=== PATIENT | male | born 1950 | race Caucasian/White ===

== ENCOUNTER 2019-12-02 13:12 | Inpatient (IN) ==
[~2019-12-02 13:12] MED LIST: DEXTROSE 50% 25 GM/50 ML VIAL IV PRN; GLUCAGON 1 MG VIAL IM PRN; SODIUM CHLORIDE 0.9% 1,000 ML IV SCH
[2019-12-02] MEDS ORDERED: ZALEPLON 5 MG CAPSULE PO PRN (13:36)
[2019-12-02] MEDS ORDERED: CLORAZEPATE 3.75 MG TABLET PO PRN (13:36)
[2019-12-02 15:29] LABS: Basophils % 0.3 % (0.0-0.8); Eosinophils # 0.2 10*3/uL (0.0-0.87); Hematocrit 46.5 VOL% (42.0-52.0); Hemoglobin 15.1 GM/DL (14.0-18.0); Immature Granulocytes % 0.4 %; Immature Granulocytes Absolute 0.03 #; Lymphocytes # 1.7 10*3/uL (1.4-4.0); Lymphocytes % 22.6 % (21.2-54.2); Mean Corpuscular HGB Conc 32.5 GM/DL (32-36); Mean Corpuscular Volume 89.6 FL (87-102); Mean Platelet Volume 10.5 FL (9.6-12.0); Monocytes % 7.2 % (1.7-12.7); Neutrophils % 66.5 % (38.7-73.9); Platelet Count 183 T/CUMM (130-400); Red Blood Count 5.19 MC/CUMM (3.8-5.5); Red Cell Distribution Width 13.7 % (9.3-17.3); White Blood Count 7.6 T/CUMM (4-12)
[2019-12-02 15:48] LABS: Albumin 3.6 G/DL (3.4-5.0); Bilirubin,Total 0.8 MG/DL (0.2-1.0); Calcium 9.5 MG/DL (8.5-10.1); Osmolality,Calculated 279.5 MOS/KG (273-304); Total Protein 8.1 G/DL (6.4-8.3)
[2019-12-02 16:49] LABS: Pt O2 Delivery Device Room Air
[2019-12-02 16:50] LABS: ABG Base Excess 3.1 MMOL/L (-2.5-2.5); ABG HCO3 27.1 MMOL/L (20-26); ABG Oxygen Saturation 96.8 % (95-100); ABG PCO2 36.7 MM HG (35-48); ABG PH 7.468 (7.35-7.45); ABG PO2 83.2 MM HG (80-95); ABG TCO2 22.4 MMOL/L (23-27)
[2019-12-02] MEDS: CHLORHEXIDINE 4% SOLN 118 ML BOTTLE TOP SCH ×2 (17:07→20:17)
[2019-12-02] MEDS: carvediloL 25 MG TABLET PO SCH (20:16)
[2019-12-02] MEDS: LOSARTAN 50 MG TABLET PO SCH (20:17)
[2019-12-02] MEDS: FUROSEMIDE 40 MG TABLET PO SCH (20:17)
[2019-12-02] MEDS: CHLORHEXIDINE 0.12% ORAL RINSE 60 ML BOTTLE SWISH/SPIT SCH (21:37)
[2019-12-03] MEDS ORDERED: PAPAVERINE 60 MG/2 ML VIAL ONE (04:24)
[2019-12-03] MEDS ORDERED: VANCOMYCIN 500 MG VIAL ONE (04:24)
[2019-12-03] MEDS ORDERED: VANCOMYCIN 1,000 MG VIAL ONE (04:24)
[2019-12-03] MEDS: CHLORHEXIDINE 4% SOLN 118 ML BOTTLE TOP SCH ×2 (04:30→09:26)
[2019-12-03] MEDS ORDERED: DIAZEPAM 5 MG TABLET PO ONE (05:07)
[2019-12-03] MEDS ORDERED: FAMOTIDINE 20 MG TABLET PO ONE (05:08)
[2019-12-03] MEDS ORDERED: CEFUROXIME INJ 1,500 MG in SODIUM CHLORIDE 0.9% 100 ML IV ONE (06:00)
[2019-12-03] MEDS ORDERED: MIDAZOLAM 10 MG/2 ML VIAL ONE (06:04)
[2019-12-03] MEDS ORDERED: SUFentanil 250 MCG/5 ML AMP ONE (06:05)
[2019-12-03] MEDS ORDERED: ePHEDrine 50 MG/ML VIAL ONE (06:05)
[2019-12-03] MEDS: carvediloL 25 MG TABLET PO SCH ×2 (06:07→09:26)
[2019-12-03 07:35] LABS: ABG Base Excess 1.6 MMOL/L (-2.5-2.5); ABG HCO3 25.9 MMOL/L (20-26); ABG PCO2 35.9 MM HG (35-48); ABG PH 7.454 (7.35-7.45); ABG TCO2 21.7 MMOL/L (23-27); Glucose Heart Surgery 128 MG/DL (74-106); Hematocrit Heart Surgery 41.2 PERCENT (42-52); Hemoglobin Heart Surgery 13.4 G/DL (14.0-18.0); Ionized Calcium Arterial 1.16 MMOL/L (1.21-1.46); PCO2 Patient Temp Arterial 35.9 MMHG; PH Patient Temp Arterial 7.454; Patient Temperature 37 CELCIUS; Potassium Heart/CVR 3.2 MMOL/L (3.5-5.1); Sodium Heart/CVR 144 MMOL/L (135-145)
[2019-12-03 08:17] LABS: Amorphous Crystals,Urine Occasional /HPF (Few); Apearance,Urine CLEAR (Clear); Bilirubin,Urine Negative (Negative); Blood, Urine Negative (Negative); Glucose,Urine (UA) Negative (Negative); Hyaline Casts,Urine 3 /LPF (0-3); Ketones,Urine Negative (Negative); Mucus,Urine Occasional /LPF (Occasional); Nitrite,Urine Negative (Negative); Protein,Urine Negative; RBC,Urine 4 /HPF (0-4); Squamous Epithelial Cell,Urine Occasional /HPF (0-10); Urine Color Yellow (Yellow); Urine Specific Gravity 1.016 (1.001-1.035); Urine Urobilinogen < 2.0 EU/DL (0.2-1.0); WBC,Urine <1 /HPF (0-6)
[2019-12-03 08:59] LABS: Hematocrit Heart Surgery 29.3 PERCENT (42-52); Hemoglobin Heart Surgery 9.4 G/DL (14.0-18.0); PCO2 Patient Temp Venous 33.8 MM HG; PH Patient Temp Venous 7.485; PO2 Patient Temp Venous 36.2 MM HG; Potassium Heart/CVR 3.6 MMOL/L (3.5-5.1); VBG Base Excess 2.3 MEQ/L (0-4); VBG HCO3 26.1 MEQ/L (24-28); VBG Oxygen Saturation 75.7 %; VBG PCO2 37.3 MMHG (41-51); VBG PH 7.455; VBG PO2 41.7 MMHG (17-40)
[2019-12-03] MEDS ORDERED: POTASSIUM CHLORIDE 8 MEQ CAPSULE PO SCH (09:00)
[2019-12-03] MEDS: LOSARTAN 50 MG TABLET PO SCH (09:26)
[2019-12-03] MEDS: FUROSEMIDE 40 MG TABLET PO SCH (09:26)
[2019-12-03] MEDS: CHLORHEXIDINE 0.12% ORAL RINSE 60 ML BOTTLE SWISH/SPIT SCH ×2 (09:26→21:49)
[2019-12-03 09:32] LABS: Hematocrit Heart Surgery 31.1 PERCENT (42-52); Hemoglobin Heart Surgery 10.1 G/DL (14.0-18.0); PH Patient Temp Venous 7.521; PO2 Patient Temp Venous 37.8 MM HG; Potassium Heart/CVR 3.7 MMOL/L (3.5-5.1); VBG Base Excess 2.3 MEQ/L (0-4); VBG HCO3 26.2 MEQ/L (24-28); VBG Oxygen Saturation 82.7 %; VBG PCO2 34.7 MMHG (41-51); VBG PH 7.476; VBG PO2 46.5 MMHG (17-40)
[2019-12-03 09:58] LABS: Hematocrit Heart Surgery 32.9 PERCENT (42-52); Hemoglobin Heart Surgery 10.7 G/DL (14.0-18.0); PCO2 Patient Temp Venous 30.7 MM HG; PH Patient Temp Venous 7.51; PO2 Patient Temp Venous 35.6 MM HG; VBG HCO3 25.8 MEQ/L (24-28); VBG Oxygen Saturation 76.2 %; VBG PCO2 33.8 MMHG (41-51); VBG PH 7.48; VBG PO2 40.9 MMHG (17-40)
[2019-12-03] MEDS ORDERED: THROMBIN TOPICAL (RECOMBINANT) 5,000 UNIT VIAL TOP ONE (10:12)
[2019-12-03] MEDS ORDERED: POTASSIUM CHLORIDE RIDER 100 ML IV ONE ×2 (10:17→11:38)
[2019-12-03] MEDS ORDERED: ALBUMIN 5% 12.5 GM/250 ML VIAL IV ONE ×3 (10:17→11:39)
[2019-12-03] MEDS ORDERED: PHENYLEPHRINE DRIP 40 MG/250 ML PREMIX IV ONE (10:17)
[2019-12-03] MEDS ORDERED: CALCIUM CHLORIDE 1,000 MG/10 ML SYRINGE IV ONE (10:18)
[2019-12-03] MEDS ORDERED: LIDOCAINE 2% 5 ML VIAL ONE (10:41)
[2019-12-03] MEDS ORDERED: DEXTROSE 5% KCL 20 MEQ 20 MEQ/1,000 ML BAG IV ONE (10:41)
[2019-12-03] MEDS ORDERED: MANNITOL 100 GM/500 ML BAG IV ONE (10:41)
[2019-12-03] MEDS ORDERED: HEPARIN 10,000 UNIT/10 ML VIAL ONE (10:42)
[2019-12-03] MEDS ORDERED: POTASSIUM CHLORIDE 20 MEQ/10 ML VIAL ONE (10:42)
[2019-12-03] MEDS ORDERED: methylPREDNISolone SOD SUC 1,000 MG/8 ML VIAL ONE (10:42)
[2019-12-03] MEDS ORDERED: PROTAMINE SULFATE 250 MG/25 ML VIAL IV ONE (10:42)
[2019-12-03] MEDS ORDERED: SODIUM BICARBONATE 50 MEQ/50 ML VIAL IV ONE (10:42)
[2019-12-03] MEDS ORDERED: PROTAMINE SULFATE 50 MG/5 ML VIAL IV ONE ×3 (10:42→12:08)
[2019-12-03] MEDS ORDERED: ALBUMIN 25% 25 GM/100 ML VIAL IV ONE (10:42)
[2019-12-03] MEDS ORDERED: FUROSEMIDE 20 MG/2 ML VIAL ONE (10:42)
[2019-12-03] MEDS ORDERED: MAGNESIUM SULFATE 5 GM/10 ML VIAL IV ONE (10:42)
[2019-12-03 10:48] LABS: ABG Base Excess -0.9 MMOL/L (-2.5-2.5); ABG HCO3 23.7 MMOL/L (20-26); ABG Oxygen Saturation 99.5 % (95-100); ABG PCO2 43.4 MM HG (35-48); ABG PH 7.361 (7.35-7.45); ABG TCO2 22.2 MMOL/L (23-27); Glucose Heart Surgery 204 MG/DL (74-106); Hematocrit Heart Surgery 33.1 PERCENT (42-52); Hemoglobin Heart Surgery 10.7 G/DL (14.0-18.0); Ionized Calcium Arterial 1.41 MMOL/L (1.21-1.46); PCO2 Patient Temp Arterial 43.4 MMHG; PH Patient Temp Arterial 7.361; Patient Temperature 37 CELCIUS; Sodium Heart/CVR 139 MMOL/L (135-145)
[2019-12-03] MEDS ORDERED: INSULIN REGULAR 100 UNIT/ML IV ONE (11:14)
[2019-12-03] MEDS ORDERED: PHENYLEPHRINE DRIP 40 MG/250 ML PREMIX IV PRN (11:14)
[2019-12-03] MEDS ORDERED: MORPHINE 10 MG/1 ML VIAL IV PRN (11:14)
[2019-12-03] MEDS ORDERED: INSULIN REGULAR 100 UNIT/ML IV PRN (11:14)
[2019-12-03] MEDS ORDERED: MIDAZOLAM 10 MG/2 ML VIAL IV PRN (11:14)
[2019-12-03] MEDS ORDERED: LACTATED RINGERS 250 ML IV PRN (11:14)
[2019-12-03] MEDS ORDERED: ONDANSETRON 4 MG/2 ML VIAL IV PRN (11:14)
[2019-12-03] MEDS ORDERED: MAGNESIUM SULF RIDER 4 GM in PREMIX 1 EACH IV PRN (11:14)
[2019-12-03] MEDS ORDERED: VECURONIUM 10 MG VIAL IV PRN ×2 (11:14)
[2019-12-03] MEDS ORDERED: ACETAMINOPHEN 650 MG SUPP RECTAL PRN (11:14)
[2019-12-03] MEDS ORDERED: DEXTROSE 50% 25 GM/50 ML VIAL IV PRN ×2 (11:14)
[2019-12-03] MEDS ORDERED: MIDAZOLAM 2 MG/2 ML VIAL IV PRN (11:14)
[2019-12-03] MEDS ORDERED: MAGNESIUM SULF RIDER 2 GM in PREMIX 1 EACH IV PRN (11:14)
[2019-12-03] MEDS ORDERED: POTASSIUM CHLORIDE RIDER 10 MEQ in PREMIX 1 EACH IV PRN (11:14)
[2019-12-03] MEDS ORDERED: CALCIUM CHLORIDE 1,000 MG/10 ML SYRINGE IV PRN (11:14)
[2019-12-03] MEDS ORDERED: MORPHINE 4 MG/1 ML VIAL IV PRN (11:14)
[2019-12-03] MEDS ORDERED: CHLORHEXIDINE 4% SOLN 118 ML BOTTLE TOP PRN (11:14)
[2019-12-03] MEDS ORDERED: NITROPRUSSIDE 100 MG in DEXTROSE 5% 250 ML IV PRN (11:14)
[2019-12-03] MEDS: LACTATED RINGERS 1,000 ML IV PRN ×3 (11:22→15:35)
[2019-12-03] MEDS ORDERED: SODIUM CHLORIDE 0.45% 1,000 ML IV SCH ×2 (11:30)
[2019-12-03] MEDS ORDERED: INSULIN REGULAR DRIP 100 ML IV SCH (11:30)
[2019-12-03] MEDS ORDERED: NITROGLYCERIN DRIP 50 MG/250 ML BOTTLE IV ONE (11:38)
[2019-12-03] MEDS ORDERED: CALCIUM CHLORIDE 1,000 MG/10 ML VIAL IV ONE (11:38)
[2019-12-03] MEDS ORDERED: HEPARIN/NACL 0.9% 2 UNITS/ML 500 ML IV ONE (11:38)
[2019-12-03] MEDS ORDERED: PHENYLEPHRINE DRIP 20 MG/250 ML PREMIX IV ONE (11:38)
[2019-12-03] MEDS ORDERED: SEVOFLURANE 1 UNIT/15 MINUTE INH ONE (11:38)
[2019-12-03] MEDS ORDERED: VECURONIUM 10 MG VIAL IV ONE (11:38)
[2019-12-03] MEDS ORDERED: SODIUM CHLORIDE 0.9% 1,000 ML IV ONE (11:39)
[2019-12-03] MEDS ORDERED: LACTATED RINGERS 1,000 ML IV ONE ×2 (11:39→12:00)
[2019-12-03] MEDS ORDERED: AMINOCAPROIC ACID 5,000 MG/20 ML VIAL ONE (11:39)
[2019-12-03] MEDS ORDERED: SODIUM CHLORIDE 0.9% 250 ML IV ONE (11:39)
[2019-12-03] MEDS ORDERED: SODIUM CHLORIDE 0.9% 100 ML IV ONE (11:39)
[2019-12-03] MEDS ORDERED: NITROPRUSSIDE 50 MG/2 ML VIAL ONE ×2 (11:47→11:48)
[2019-12-03 11:59] LABS: ABG HCO3 24.4 MMOL/L (20-26); ABG Oxygen Saturation 98.9 % (95-100); ABG PCO2 45.2 MM HG (35-48); ABG PH 7.363 (7.35-7.45); ABG TCO2 22.9 MMOL/L (23-27); Glucose Heart Surgery 181 MG/DL (74-106); Hematocrit Heart Surgery 36.9 PERCENT (42-52); Potassium Heart/CVR 3.2 MMOL/L (3.5-5.1)
[2019-12-03] MEDS: POTASSIUM CHLORIDE RIDER 20 MEQ in PREMIX 1 EACH IV PRN ×5 (12:00→22:33)
[2019-12-03 12:02] LABS: Basophils % 0.1 % (0.0-0.8); Eosinophils # 0.1 10*3/uL (0.0-0.87); Hematocrit 36.1 VOL% (42.0-52.0); Hemoglobin 11.8 GM/DL (14.0-18.0); Immature Granulocytes % 0.6 %; Immature Granulocytes Absolute 0.05 #; Lymphocytes # 0.7 10*3/uL (1.4-4.0); Lymphocytes % 8.4 % (21.2-54.2); Mean Corpuscular HGB Conc 32.7 GM/DL (32-36); Mean Corpuscular Volume 89.6 FL (87-102); Mean Platelet Volume 10.7 FL (9.6-12.0); Monocytes % 4.5 % (1.7-12.7); Neutrophils % 85.4 % (38.7-73.9); Platelet Count 124 T/CUMM (130-400); Red Blood Count 4.03 MC/CUMM (3.8-5.5); Red Cell Distribution Width 13.8 % (9.3-17.3); White Blood Count 8.7 T/CUMM (4-12)
[2019-12-03 12:13] LABS: INR 1.1; PT Patient Result 12.1 SECS (9.8-11.9); Partial Thromboplastin Time 28.2 SECS (23.9-33.8)
[2019-12-03 12:31] LABS: CKMB % 5.4 %
[2019-12-03 12:34] LABS: Albumin 3.3 G/DL (3.4-5.0); Bilirubin,Total 1.5 MG/DL (0.2-1.0); Calcium 9.1 MG/DL (8.5-10.1); Osmolality,Calculated 289.3 MOS/KG (273-304); Total Protein 6.5 G/DL (6.4-8.3)
[2019-12-03 12:36] LABS: Troponin I 2.38 NG/ML (0.00-0.045)
[2019-12-03 12:47] LABS: Hematocrit Heart Surgery 33.2 PERCENT (42-52); Hemoglobin Heart Surgery 10.7 G/DL (14.0-18.0); PCO2 Patient Temp Venous 47.8 MM HG; PH Patient Temp Venous 7.344; PO2 Patient Temp Venous 41.6 MM HG; Potassium Heart/CVR 3.2 MMOL/L (3.5-5.1); VBG Base Excess -0.1 MEQ/L (0-4); VBG HCO3 23.8 MEQ/L (24-28); VBG Oxygen Saturation 67.6 %; VBG PCO2 47.8 MMHG (41-51); VBG PH 7.344; VBG PO2 41.6 MMHG (17-40)
[2019-12-03] MEDS: ALBUMIN 5% 12.5 GM in PREMIX 1 EACH IV PRN ×2 (13:00→15:45)
[2019-12-03 13:20] LABS: ABG HCO3 24.4 MMOL/L (20-26); ABG Oxygen Saturation 98.7 % (95-100); ABG PCO2 39.2 MM HG (35-48); ABG PH 7.405 (7.35-7.45); Glucose Heart Surgery 179 MG/DL (74-106); Hematocrit Heart Surgery 34.3 PERCENT (42-52); Hemoglobin Heart Surgery 11.1 G/DL (14.0-18.0); Potassium Heart/CVR 3.5 MMOL/L (3.5-5.1)
[2019-12-03 15:28] LABS: ABG Base Excess -0.8 MMOL/L (-2.5-2.5); ABG HCO3 23.7 MMOL/L (20-26); ABG Oxygen Saturation 98.4 % (95-100); ABG PCO2 40.1 MM HG (35-48); ABG PH 7.386 (7.35-7.45); ABG TCO2 21.7 MMOL/L (23-27); Glucose Heart Surgery 193 MG/DL (74-106); Hematocrit Heart Surgery 33.4 PERCENT (42-52); Hemoglobin Heart Surgery 10.8 G/DL (14.0-18.0); Potassium Heart/CVR 3.9 MMOL/L (3.5-5.1)
[2019-12-03] MEDS ORDERED: SODIUM CHLORIDE 0.9% 1,000 ML IV PRN (16:23)
[2019-12-03] MEDS: CEFUROXIME INJ 1,500 MG in SYRINGE 1 EACH IV SCH (18:23)
[2019-12-03 18:29] LABS: ABG Base Excess -0.6 MMOL/L (-2.5-2.5); ABG HCO3 23.9 MMOL/L (20-26); ABG Oxygen Saturation 98.7 % (95-100); ABG PCO2 39.2 MM HG (35-48); ABG PH 7.396 (7.35-7.45); ABG TCO2 22.2 MMOL/L (23-27); Glucose Heart Surgery 230 MG/DL (74-106); Hematocrit Heart Surgery 27.6 PERCENT (42-52); Hemoglobin Heart Surgery 8.9 G/DL (14.0-18.0); Potassium Heart/CVR 3.7 MMOL/L (3.5-5.1)
[2019-12-03] MEDS ORDERED: NITROGLYCERIN DRIP 50 MG/250 ML BOTTLE IV PRN (20:00)
[2019-12-03 20:27] LABS: ABG Base Excess -1.1 MMOL/L (-2.5-2.5); ABG HCO3 23.5 MMOL/L (20-26); ABG Oxygen Saturation 97.9 % (95-100); ABG PH 7.354 (7.35-7.45); ABG TCO2 22.6 MMOL/L (23-27); Glucose Heart Surgery 279 MG/DL (74-106); Hematocrit Heart Surgery 28.7 PERCENT (42-52); Hemoglobin Heart Surgery 9.3 G/DL (14.0-18.0); Potassium Heart/CVR 3.9 MMOL/L (3.5-5.1)
[2019-12-03 21:12] LABS: CKMB % 5.6 %
[2019-12-03 21:35] LABS: Troponin I 5.74 NG/ML (0.00-0.045)
[2019-12-03 22:16] LABS: ABG Base Excess -1.3 MMOL/L (-2.5-2.5); ABG HCO3 23.3 MMOL/L (20-26); ABG Oxygen Saturation 96.9 % (95-100); ABG PCO2 42.6 MM HG (35-48); ABG PH 7.361 (7.35-7.45); ABG PO2 96.9 MM HG (80-95); ABG TCO2 22.2 MMOL/L (23-27); Glucose Heart Surgery 279 MG/DL (74-106); Hematocrit Heart Surgery 28.7 PERCENT (42-52); Hemoglobin Heart Surgery 9.2 G/DL (14.0-18.0); Potassium Heart/CVR 3.9 MMOL/L (3.5-5.1)
[2019-12-03 23:56] LABS: ABG Base Excess -2.5 MMOL/L (-2.5-2.5); ABG HCO3 22.3 MMOL/L (20-26); ABG Oxygen Saturation 97.2 % (95-100); ABG PCO2 41.2 MM HG (35-48); ABG PH 7.353 (7.35-7.45); ABG PO2 96.9 MM HG (80-95); ABG TCO2 21.1 MMOL/L (23-27); Glucose Heart Surgery 215 MG/DL (74-106); Hematocrit Heart Surgery 28.9 PERCENT (42-52); Hemoglobin Heart Surgery 9.3 G/DL (14.0-18.0)
[2019-12-04] MEDS: POTASSIUM CHLORIDE RIDER 20 MEQ in PREMIX 1 EACH IV PRN ×2 (00:05→05:53)
[2019-12-04 00:34] LABS: ABG Base Excess -2.2 MMOL/L (-2.5-2.5); ABG HCO3 22.6 MMOL/L (20-26); ABG Oxygen Saturation 96.6 % (95-100); ABG PCO2 42.2 MM HG (35-48); ABG PO2 89.4 MM HG (80-95); ABG TCO2 21.5 MMOL/L (23-27); Glucose Heart Surgery 202 MG/DL (74-106); Hematocrit Heart Surgery 28.7 PERCENT (42-52); Hemoglobin Heart Surgery 9.3 G/DL (14.0-18.0); Potassium Heart/CVR 4.5 MMOL/L (3.5-5.1)
[2019-12-04 04:14] LABS: ABG Base Excess -1.5 MMOL/L (-2.5-2.5); ABG HCO3 23.1 MMOL/L (20-26); ABG PCO2 38.1 MM HG (35-48); ABG PO2 91.2 MM HG (80-95); ABG TCO2 24.2 MMOL/L (23-27); Glucose Heart Surgery 164 MG/DL (74-106); Hemoglobin Heart Surgery 9.4 G/DL (14.0-18.0); Potassium Heart/CVR 3.8 MMOL/L (3.5-5.1)
[2019-12-04 04:22] LABS: Basophils % 0.1 % (0.0-0.8); Hematocrit 28.1 VOL% (42.0-52.0); Hemoglobin 9.1 GM/DL (14.0-18.0); Immature Granulocytes % 0.7 %; Immature Granulocytes Absolute 0.08 #; Lymphocytes # 0.7 10*3/uL (1.4-4.0); Lymphocytes % 6.7 % (21.2-54.2); Mean Corpuscular HGB Conc 32.4 GM/DL (32-36); Mean Corpuscular Volume 89.5 FL (87-102); Monocytes % 4.2 % (1.7-12.7); Neutrophils % 88.3 % (38.7-73.9); Platelet Count 124 T/CUMM (130-400); Red Blood Count 3.14 MC/CUMM (3.8-5.5); Red Cell Distribution Width 13.9 % (9.3-17.3)
[2019-12-04 04:45] LABS: Albumin 3.1 G/DL (3.4-5.0); Bilirubin,Direct 0.23 MG/DL (0.0-0.20); Bilirubin,Total 0.7 MG/DL (0.2-1.0); Calcium 8.7 MG/DL (8.5-10.1); Osmolality,Calculated 296.8 MOS/KG (273-304); Total Protein 6.2 G/DL (6.4-8.3)
[2019-12-04 04:50] LABS: CKMB % 5.3 %
[2019-12-04 05:00] LABS: Troponin I 3.41 NG/ML (0.00-0.045)
[2019-12-04] MEDS: CEFUROXIME INJ 1,500 MG in SYRINGE 1 EACH IV SCH (06:54)
[2019-12-04 07:04] LABS: ABG Base Excess -0.4 MMOL/L (-2.5-2.5); ABG Oxygen Saturation 95.9 % (95-100); ABG PCO2 40.2 MM HG (35-48); ABG PH 7.392 (7.35-7.45); ABG PO2 80.8 MM HG (80-95); ABG TCO2 21.9 MMOL/L (23-27); Glucose Heart Surgery 136 MG/DL (74-106); Hematocrit Heart Surgery 34.3 PERCENT (42-52); Hemoglobin Heart Surgery 11.1 G/DL (14.0-18.0); Potassium Heart/CVR 4.2 MMOL/L (3.5-5.1)
[2019-12-04] MEDS: carvediloL 25 MG TABLET PO SCH ×2 (08:35→17:18)
[2019-12-04] MEDS: CHLORHEXIDINE 0.12% ORAL RINSE 60 ML BOTTLE SWISH/SPIT SCH ×2 (08:38→20:35)
[2019-12-04 09:08] LABS: ABG Base Excess -0.2 MMOL/L (-2.5-2.5); ABG HCO3 23.8 MMOL/L (20-26); ABG PCO2 36.2 MM HG (35-48); ABG PH 7.436 (7.35-7.45); ABG PO2 97.8 MM HG (80-95); ABG TCO2 24.9 MMOL/L (23-27); Glucose Heart Surgery 122 MG/DL (74-106); Hemoglobin Heart Surgery 9.6 G/DL (14.0-18.0); Potassium Heart/CVR 4.1 MMOL/L (3.5-5.1)
[2019-12-04] MEDS: LOSARTAN 50 MG TABLET PO SCH ×2 (09:45→20:31)
[2019-12-04] MEDS ORDERED: MAGNESIUM HYDROXIDE SUSP 30 ML UDCUP PO PRN (10:09)
[2019-12-04] MEDS ORDERED: MAGNESIUM SULF RIDER 2 GM in PREMIX 1 EACH IV PRN (10:09)
[2019-12-04] MEDS ORDERED: SODIUM CHLOR 0.45% KCL 20 MEQ 20 MEQ/1,000 ML BAG IV SCH (10:09)
[2019-12-04] MEDS ORDERED: ONDANSETRON 4 MG/2 ML VIAL IV PRN (10:09)
[2019-12-04] MEDS ORDERED: oxyCODONE/ACETAMINOPHEN 5-325 MG TABLET PO PRN (10:09)
[2019-12-04] MEDS ORDERED: DEXTROSE 50% 25 GM/50 ML VIAL IV PRN ×2 (10:09)
[2019-12-04] MEDS ORDERED: ACETAMINOPHEN 325 MG TABLET PO PRN (10:09)
[2019-12-04] MEDS ORDERED: MAGNESIUM SULF RIDER 4 GM in PREMIX 1 EACH IV PRN (10:09)
[2019-12-04] MEDS ORDERED: GLUCAGON 1 MG VIAL IM PRN ×2 (10:09)
[2019-12-04] MEDS ORDERED: ALUMINUM/MAGNES/SIMETH MAX STR 30 ML UDCUP PO PRN (10:09)
[2019-12-04] MEDS: KETOROLAC 30 MG/1 ML VIAL IV SCH ×3 (10:25→21:16)
[2019-12-04] MEDS ORDERED: AMIODARONE INJ 150 MG in DEXTROSE 5% 100 ML IV ONE (17:50)
[2019-12-04] MEDS ORDERED: AMIODARONE 450 MG/9 ML VIAL IV ONE (17:55)
[2019-12-04] MEDS ORDERED: AMIODARONE 150 MG/3 ML VIAL ONE (17:55)
[2019-12-04] MEDS ORDERED: AMIODARONE INJ 450 MG in DEXTROSE 5% 241 ML IV SCH (18:00)
[2019-12-04] MEDS: ZALEPLON 5 MG CAPSULE PO PRN (20:36)
[2019-12-04] MEDS ORDERED: PHENOL 1.4% THROAT SPRAY 177 ML BOTTLE PO PRN (21:45)
[2019-12-05] MEDS ORDERED: AMIODARONE INJ 450 MG in DEXTROSE 5% 241 ML IV SCH
[2019-12-05] MEDS: KETOROLAC 30 MG/1 ML VIAL IV SCH ×4 (04:53→21:08)
[2019-12-05] MEDS ORDERED: KETOROLAC 30 MG/1 ML VIAL IV PRN (05:11)
[2019-12-05 05:23] LABS: Basophils % 0.1 % (0.0-0.8); Hemoglobin 8.6 GM/DL (14.0-18.0); Immature Granulocytes % 0.7 %; Immature Granulocytes Absolute 0.08 #; Lymphocytes % 8.6 % (21.2-54.2); Mean Corpuscular HGB Conc 31.9 GM/DL (32-36); Mean Corpuscular Volume 91.8 FL (87-102); Mean Platelet Volume 11.7 FL (9.6-12.0); Monocytes % 6.1 % (1.7-12.7); Neutrophils % 84.5 % (38.7-73.9); Platelet Count 102 T/CUMM (130-400); Red Blood Count 2.94 MC/CUMM (3.8-5.5); Red Cell Distribution Width 14.3 % (9.3-17.3); White Blood Count 11.3 T/CUMM (4-12)
[2019-12-05] MEDS ORDERED: FUROSEMIDE 40 MG/4 ML VIAL IV ONE (06:00)
[2019-12-05 06:07] LABS: Alanine Aminotransferase 27 U/L (16-61); Albumin 3.1 G/DL (3.4-5.0); Alkaline Phosphatase 62 U/L (45-117); Aspartate Amino Transferase 25 U/L (0-37); Blood Urea Nitrogen 46 MG/DL (7-18); Calcium 8.3 MG/DL (8.5-10.1); Estimated Glom Filtration Rate 99 ML/MIN; Glucose 152 MG/DL (74-106); Total Protein 6.1 G/DL (6.4-8.3)
[2019-12-05 06:37] LABS: Band Neutrophils 2 % (0-10); Lymphocytes 4 % (20-55); Segmented Neutrophils 90 % (50-85); Total Cells Counted 100
[2019-12-05 06:38] LABS: Anisocytosis 1+; Hypochromasia 1+; Platelet Estimate Adequate; Schistocytes Slight
[2019-12-05] MEDS ORDERED: FUROSEMIDE 40 MG TABLET PO SCH ×2 (08:00→16:00)
[2019-12-05] MEDS: carvediloL 25 MG TABLET PO SCH ×2 (10:13→17:50)
[2019-12-05] MEDS: DOCUSATE SODIUM 100 MG CAPSULE PO SCH (10:13)
[2019-12-05] MEDS: LOSARTAN 50 MG TABLET PO SCH ×2 (10:13→21:59)
[2019-12-05] MEDS: PANTOPRAZOLE 40 MG TABLET PO SCH (10:14)
[2019-12-05] MEDS: FERROUS SULFATE 325 MG TABLET PO SCH (10:14)
[2019-12-05] MEDS: CHLORHEXIDINE 0.12% ORAL RINSE 60 ML BOTTLE SWISH/SPIT SCH ×2 (10:14→21:09)
[2019-12-05] MEDS: ASPIRIN EC 325 MG TABLET PO SCH (10:14)
[2019-12-05] MEDS: AMIODARONE 200 MG TABLET PO SCH ×2 (14:57→21:08)
[2019-12-05] MEDS ORDERED: FUROSEMIDE 40 MG TABLET PO ONE (16:00)
[2019-12-05] MEDS: ATORVASTATIN 40 MG TABLET PO SCH (21:08)
[2019-12-06] MEDS: KETOROLAC 30 MG/1 ML VIAL IV SCH ×4 (04:15→21:10)
[2019-12-06 05:52] LABS: Basophils % 0.1 % (0.0-0.8); Eosinophils # 0.1 10*3/uL (0.0-0.87); Eosinophils % 1.1 % (0.00-10.9); Hematocrit 26.7 VOL% (42.0-52.0); Hemoglobin 8.5 GM/DL (14.0-18.0); Immature Granulocytes % 0.6 %; Immature Granulocytes Absolute 0.05 #; Lymphocytes # 1.6 10*3/uL (1.4-4.0); Lymphocytes % 19.7 % (21.2-54.2); Mean Corpuscular HGB Conc 31.8 GM/DL (32-36); Mean Corpuscular Volume 92.7 FL (87-102); Mean Platelet Volume 11.8 FL (9.6-12.0); Neutrophils % 71.5 % (38.7-73.9); Platelet Count 97 T/CUMM (130-400); Red Blood Count 2.88 MC/CUMM (3.8-5.5); Red Cell Distribution Width 14.1 % (9.3-17.3); White Blood Count 8.2 T/CUMM (4-12)
[2019-12-06 06:01] LABS: Calcium 8.1 MG/DL (8.5-10.1); Osmolality,Calculated 296.8 MOS/KG (273-304)
[2019-12-06 06:12] LABS: Alanine Aminotransferase 28 U/L (16-61); Albumin 2.8 G/DL (3.4-5.0); Alkaline Phosphatase 62 U/L (45-117); Aspartate Amino Transferase 23 U/L (0-37); Bilirubin,Indirect 0.6 MG/DL (0.0-1.0); Blood Urea Nitrogen 40 MG/DL (7-18); Calcium 8.2 MG/DL (8.5-10.1); Estimated Glom Filtration Rate 99 ML/MIN; Glucose 115 MG/DL (74-106); Osmolality,Calculated 296.8 MOS/KG (273-304); Total Protein 5.9 G/DL (6.4-8.3)
[2019-12-06 06:14] LABS: Troponin I 0.887 NG/ML (0.00-0.045)
[2019-12-06 06:33] LABS: Hypochromasia 1+; Microcytosis Slight; Ovalocytes Slight; Platelet Estimate Decreased
[2019-12-06] MEDS: carvediloL 25 MG TABLET PO SCH ×2 (09:38→17:45)
[2019-12-06] MEDS: FUROSEMIDE 40 MG TABLET PO SCH ×2 (09:39→15:32)
[2019-12-06] MEDS: ASPIRIN EC 325 MG TABLET PO SCH (09:39)
[2019-12-06] MEDS: DOCUSATE SODIUM 100 MG CAPSULE PO SCH (09:40)
[2019-12-06] MEDS: AMIODARONE 200 MG TABLET PO SCH ×2 (09:40→21:05)
[2019-12-06] MEDS: LOSARTAN 50 MG TABLET PO SCH ×2 (09:41→21:05)
[2019-12-06] MEDS: FERROUS SULFATE 325 MG TABLET PO SCH (09:42)
[2019-12-06] MEDS: APIXABAN 5 MG TABLET PO SCH ×2 (09:42→21:05)
[2019-12-06] MEDS: PANTOPRAZOLE 40 MG TABLET PO SCH (09:43)
[2019-12-06] MEDS: CHLORHEXIDINE 0.12% ORAL RINSE 60 ML BOTTLE SWISH/SPIT SCH ×2 (09:44→21:05)
[2019-12-06] MEDS: POTASSIUM CHLORIDE 20 MEQ TABLET PO PRN ×2 (09:44→12:14)
[2019-12-06] MEDS: ATORVASTATIN 40 MG TABLET PO SCH (21:05)
[2019-12-07] MEDS: KETOROLAC 30 MG/1 ML VIAL IV SCH (04:20)
[2019-12-07 04:48] LABS: Basophils % 0.3 % (0.0-0.8); Eosinophils # 0.4 10*3/uL (0.0-0.87); Hematocrit 28.1 VOL% (42.0-52.0); Immature Granulocytes % 0.7 %; Immature Granulocytes Absolute 0.05 #; Lymphocytes # 1.8 10*3/uL (1.4-4.0); Lymphocytes % 23.6 % (21.2-54.2); Mean Corpuscular Volume 92.1 FL (87-102); Mean Platelet Volume 11.6 FL (9.6-12.0); Monocytes % 6.2 % (1.7-12.7); Neutrophils % 64.2 % (38.7-73.9); Platelet Count 103 T/CUMM (130-400); Red Blood Count 3.05 MC/CUMM (3.8-5.5); Red Cell Distribution Width 13.8 % (9.3-17.3); White Blood Count 7.6 T/CUMM (4-12)
[2019-12-07 05:08] LABS: Osmolality,Calculated 293.8 MOS/KG (273-304)
[2019-12-07 05:16] LABS: Hypochromasia 1+; Platelet Estimate Decreased
[2019-12-07 05:17] LABS: Microcytosis Slight
[2019-12-07] MEDS: ASPIRIN EC 325 MG TABLET PO SCH (08:56)
[2019-12-07] MEDS: FERROUS SULFATE 325 MG TABLET PO SCH (08:56)
[2019-12-07] MEDS: DOCUSATE SODIUM 100 MG CAPSULE PO SCH (08:57)
[2019-12-07] MEDS: carvediloL 25 MG TABLET PO SCH ×2 (08:57→16:40)
[2019-12-07] MEDS: PANTOPRAZOLE 40 MG TABLET PO SCH (08:57)
[2019-12-07] MEDS: AMIODARONE 200 MG TABLET PO SCH ×2 (08:57→21:31)
[2019-12-07] MEDS: APIXABAN 5 MG TABLET PO SCH ×2 (08:57→21:30)
[2019-12-07] MEDS: LOSARTAN 50 MG TABLET PO SCH ×2 (08:57→21:31)
[2019-12-07] MEDS: FUROSEMIDE 40 MG TABLET PO SCH ×2 (08:57→16:40)
[2019-12-07] MEDS: CHLORHEXIDINE 0.12% ORAL RINSE 60 ML BOTTLE SWISH/SPIT SCH ×2 (08:59→21:32)
[2019-12-07] MEDS: POTASSIUM CHLORIDE 20 MEQ TABLET PO PRN ×2 (10:29→11:36)
[2019-12-07] MEDS: ATORVASTATIN 40 MG TABLET PO SCH (21:30)
[2019-12-08 05:45] LABS: Basophils % 0.1 % (0.0-0.8); Eosinophils # 0.4 10*3/uL (0.0-0.87); Eosinophils % 5.3 % (0.00-10.9); Hematocrit 29.8 VOL% (42.0-52.0); Hemoglobin 9.5 GM/DL (14.0-18.0); Immature Granulocytes % 0.4 %; Immature Granulocytes Absolute 0.03 #; Lymphocytes # 1.6 10*3/uL (1.4-4.0); Lymphocytes % 20.2 % (21.2-54.2); Mean Corpuscular HGB Conc 31.9 GM/DL (32-36); Mean Corpuscular Volume 91.1 FL (87-102); Mean Platelet Volume 11.4 FL (9.6-12.0); Monocytes % 6.6 % (1.7-12.7); Neutrophils % 67.4 % (38.7-73.9); Platelet Count 131 T/CUMM (130-400); Red Blood Count 3.27 MC/CUMM (3.8-5.5); Red Cell Distribution Width 13.8 % (9.3-17.3); White Blood Count 8.1 T/CUMM (4-12)
[2019-12-08 05:55] LABS: Alanine Aminotransferase 27 U/L (16-61); Alkaline Phosphatase 72 U/L (45-117); Aspartate Amino Transferase 17 U/L (0-37); Bilirubin,Indirect 0.7 MG/DL (0.0-1.0); Blood Urea Nitrogen 24 MG/DL (7-18); Calcium 8.6 MG/DL (8.5-10.1); Estimated Glom Filtration Rate 113 ML/MIN; Glucose 141 MG/DL (74-106); Osmolality,Calculated 288.1 MOS/KG (273-304); Total Protein 6.6 G/DL (6.4-8.3)
[2019-12-08 06:01] LABS: Troponin I 0.328 NG/ML (0.00-0.045)
[2019-12-08 06:06] LABS: Hypochromasia 1+; Platelet Estimate Adequate
[2019-12-08 06:07] LABS: Microcytosis 1+
[2019-12-08] MEDS ORDERED: MIDAZOLAM 10 MG/2 ML VIAL ONE (07:43)
[2019-12-08] MEDS ORDERED: POTASSIUM CHLORIDE 20 MEQ TABLET PO ONE (09:31)
[2019-12-08] MEDS: PANTOPRAZOLE 40 MG TABLET PO SCH (09:41)
[2019-12-08] MEDS: carvediloL 25 MG TABLET PO SCH ×2 (09:41→16:45)
[2019-12-08] MEDS: FERROUS SULFATE 325 MG TABLET PO SCH (09:41)
[2019-12-08] MEDS: FUROSEMIDE 40 MG TABLET PO SCH ×2 (09:41→16:04)
[2019-12-08] MEDS: DOCUSATE SODIUM 100 MG CAPSULE PO SCH (09:41)
[2019-12-08] MEDS: ASPIRIN EC 325 MG TABLET PO SCH (09:41)
[2019-12-08] MEDS: LOSARTAN 50 MG TABLET PO SCH ×2 (09:41→21:25)
[2019-12-08] MEDS: APIXABAN 5 MG TABLET PO SCH ×2 (09:41→21:26)
[2019-12-08] MEDS: AMIODARONE 200 MG TABLET PO SCH ×2 (09:42→21:26)
[2019-12-08] MEDS: CHLORHEXIDINE 0.12% ORAL RINSE 60 ML BOTTLE SWISH/SPIT SCH ×2 (09:45→21:27)
[2019-12-08] MEDS: ATORVASTATIN 40 MG TABLET PO SCH (21:26)
[2019-12-08] MEDS: ZALEPLON 5 MG CAPSULE PO PRN (21:47)
[2019-12-08] MEDS: POTASSIUM CHLORIDE 20 MEQ TABLET PO PRN (23:21)
[2019-12-09] MEDS: POTASSIUM CHLORIDE 20 MEQ TABLET PO PRN ×2 (00:21→01:25)
[2019-12-09 06:06] LABS: Basophils % 0.2 % (0.0-0.8); Eosinophils # 0.3 10*3/uL (0.0-0.87); Eosinophils % 4.1 % (0.00-10.9); Hematocrit 33.7 VOL% (42.0-52.0); Hemoglobin 11.1 GM/DL (14.0-18.0); Immature Granulocytes % 0.3 %; Immature Granulocytes Absolute 0.02 #; Lymphocytes % 16.9 % (21.2-54.2); Mean Corpuscular HGB Conc 32.9 GM/DL (32-36); Mean Corpuscular Volume 89.9 FL (87-102); Mean Platelet Volume 11.6 FL (9.6-12.0); Monocytes % 7.6 % (1.7-12.7); Neutrophils % 70.9 % (38.7-73.9); Platelet Count 104 T/CUMM (130-400); Red Blood Count 3.75 MC/CUMM (3.8-5.5); Red Cell Distribution Width 13.9 % (9.3-17.3); White Blood Count 6.2 T/CUMM (4-12)
[2019-12-09 06:26] LABS: Hypochromasia 1+
[2019-12-09 06:27] LABS: Microcytosis 1+; Platelet Estimate Decreased
[2019-12-09 06:39] LABS: Alanine Aminotransferase 24 U/L (16-61); Alkaline Phosphatase 75 U/L (45-117); Aspartate Amino Transferase 16 U/L (0-37); Bilirubin,Indirect 0.6 MG/DL (0.0-1.0); Blood Urea Nitrogen 21 MG/DL (7-18); Calcium 8.4 MG/DL (8.5-10.1); Estimated Glom Filtration Rate 119 ML/MIN; Glucose 99 MG/DL (74-106); Osmolality,Calculated 285.1 MOS/KG (273-304)
[2019-12-09 06:41] LABS: Troponin I 0.215 NG/ML (0.00-0.045)
[2019-12-09] MEDS: FUROSEMIDE 40 MG TABLET PO SCH (09:14)
[2019-12-09] MEDS: FERROUS SULFATE 325 MG TABLET PO SCH (09:14)
[2019-12-09] MEDS: DOCUSATE SODIUM 100 MG CAPSULE PO SCH (09:14)
[2019-12-09] MEDS: ASPIRIN EC 325 MG TABLET PO SCH (09:15)
[2019-12-09] MEDS: PANTOPRAZOLE 40 MG TABLET PO SCH (09:15)
[2019-12-09] MEDS: carvediloL 25 MG TABLET PO SCH (09:15)
[2019-12-09] MEDS: APIXABAN 5 MG TABLET PO SCH (09:15)
[2019-12-09] MEDS: AMIODARONE 200 MG TABLET PO SCH (09:15)
[2019-12-09] MEDS: CHLORHEXIDINE 0.12% ORAL RINSE 60 ML BOTTLE SWISH/SPIT SCH (09:15)
[2019-12-09] MEDS: LOSARTAN 50 MG TABLET PO SCH (09:15)
[2019-12-09 11:58] VITALS: BP 128/81
== END 2019-12-09 13:34 | disposition home health service (06) | DRG 220 ==
LOC: N.4E 13:24 → N.CVR 12-03 11:08 → N.TELES 12-04 13:41